=== PATIENT | female | born 1985 | race American Indian/Alaskan Native ===

== ENCOUNTER 2017-09-19 14:33 | Emergency (ER) | payer OTHER ==
[2017-09-19 15:23] VITALS: BP 124/76
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
== END 2017-09-19 18:32 | disposition home or self-care (01) ==
LOC: ED 14:33
DX: S70.01XA Contusion of right hip, initial encounter (principal); M54.5 Low back pain; F17.200 Nicotine dependence, unspecified, uncomplicated; V49.59XA Passenger injured in collision with other motor vehicles in traffic accident, initial encounter; Y93.89 Activity, other specified; Y92.89 Other specified places as the place of occurrence of the external cause; Y99.8 Other external cause status
CPT/HCPCS: 72100

== ENCOUNTER 2018-07-28 15:41 | Emergency (ER) | payer SELFPAY ==
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
[2018-07-28] MEDS ORDERED: FLEXERIL PO ONE (17:38)
[2018-07-28] MEDS ORDERED: NORCO 5/325 PO ONE (17:38)
[2018-07-28] MEDS ORDERED: DECADRON IM ONE (17:38)
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
[2018-07-28 18:53] VITALS: BP 107/61
== END 2018-07-28 18:53 | disposition home or self-care (01) ==
LOC: ED 15:41
DX: M79.604 Pain in right leg (principal); M79.641 Pain in right hand; F17.200 Nicotine dependence, unspecified, uncomplicated; Z88.6 Allergy status to analgesic agent; Z88.8 Allergy status to other drugs, medicaments and biological substances; V89.2XXA Person injured in unspecified motor-vehicle accident, traffic, initial encounter; Y93.89 Activity, other specified; Y92.488 Other paved roadways as the place of occurrence of the external cause; Y99.8 Other external cause status
CPT/HCPCS: 96372; 99282; J1100

== ENCOUNTER 2020-01-20 13:37 | Emergency (ER) | payer SELFPAY ==
[2020-01-20 14:22] VITALS: BP 108/74
[2020-01-20] MEDS ORDERED: oxyCODONE /ACETAMINOPHEN 5-325MG TAB PO ONE (19:17)
[2020-01-20] MEDS ORDERED: HYDROcodone/ACETAMINOPHEN 5-325 MG TAB PO ONE (19:17)
[2020-01-20] MEDS ORDERED: IBUPROFEN 800 MG TAB PO ONE (19:17)
[2020-01-20] MEDS ORDERED: ONDANSETRON 4 MG ODT TAB PO ONE (19:17)
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
== END 2020-01-20 19:40 | disposition home or self-care (01) ==
LOC: ED 13:37
DX: S39.012A Strain of muscle, fascia and tendon of lower back, initial encounter (principal); F17.200 Nicotine dependence, unspecified, uncomplicated; Z79.899 Other long term (current) drug therapy; Z88.6 Allergy status to analgesic agent; V89.2XXA Person injured in unspecified motor-vehicle accident, traffic, initial encounter; Y93.89 Activity, other specified; Y92.89 Other specified places as the place of occurrence of the external cause; Y99.8 Other external cause status
CPT/HCPCS: 99282; Q0162